=== PATIENT | female | born 1955 | race Caucasian/White ===

== ENCOUNTER 2017-10-03 13:15 | Day surgery (SDC) | payer OTHER ==
[~2017-10-03] VITALS: Ht 160 cm; Wt 93.2 kg
[~2017-10-03 13:15] MED LIST: ANAPROX DS PO; ASPIRIN 81M81 MG/TA2 PO; FISH OIL500 MG PO; PHENERGAN 25 TA25 MG PO
[2017-10-03 14:07] VITALS: BP 137/83; PULSE 64; TEMP 98.2
[2017-10-03] MEDS ORDERED: VITAMIN D31000 I1 PO (14:14)
[2017-10-03] MEDS ORDERED: VITAMIN A10k PO (14:14)
[2017-10-03 15:57] VITALS: BP 117/64; PULSE 59; TEMP 97.8
[2017-10-03 16:15] VITALS: BP 120/76; PULSE 53
[2017-10-03 16:30] VITALS: BP 119/69; PULSE 53
== END 2017-10-03 17:05 | disposition home or self-care (01) ==
LOC: SDCO 13:15
DX: K44.9 Diaphragmatic hernia without obstruction or gangrene (principal); K29.30 Chronic superficial gastritis without bleeding; Z80.0 Family history of malignant neoplasm of digestive organs; Z79.82 Long term (current) use of aspirin; Z88.0 Allergy status to penicillin
CPT/HCPCS: OP; J2250; J3010; J7030

== ENCOUNTER 2019-01-25 10:02 | Day surgery (SDC) | payer MEDICARE, OTHER ==
[~2019-01-25] VITALS: Ht 160.1 cm; Wt 92.0 kg
[2019-01-25] VITALS (9 sets, daily range): BP systolic 106–160; BP diastolic 58–89; PULSE 50–65; TEMP 97.7
[~2019-01-25 10:02] MED LIST changes: +VITAMIN A10k PO; +VITAMIN D31000 I1 PO
[2019-01-25 10:47] LABS: HEMOGLOBIN 14.6 g/dl (12.5-16.0); MEAN CELL VOLUME 81 fl (80.0-100.0); MEAN CORPUSCULAR HEMOGLOBIN 26 pg (27.0-31.0); MEAN CORPUSCULAR HGB CONC 32 g/dl (33.0-37.0); MEAN PLATELET VOLUME 10.5 fl (7.4-10.4); PLATELET COUNT 217 K/mm3 (130-400); RED BLOOD COUNT 5.53 M/mm3 (4.10-5.30); REDCELL DISTRIBUTION WIDTH-CV 14.1 % (11.5-14.5)
[2019-01-25 10:53] LABS: PROTHROMBIN TIME 11.9 SECONDS (9.7-12.8)
[2019-01-25 10:56] LABS: CALCIUM 9.5 mg/dL (8.4-10.2); CREATININE, serum 0.85 (0.52-1.25); POTASSIUM 4.1 mmol/L (3.4-5.0)
[2019-01-25] MEDS ORDERED: NEURONTIN100 MG/CAP PO (11:06)
[2019-01-25] MEDS ORDERED: CLEOCIN HCL300 MG PO (11:07)
--- NOTE | 2019-01-25 13:26 | NUR ---
ALL MEDICATIONS GIVEN WITH VORB BY MD. SEE MERGE FOR ALL MEDICATION ADMIN TIMES. SEE MERGE FOR ALL RASS ASSESSMENTS DURING AND POST PROCEDURE. POSITIVE CLAUDIO'S TEST IN THE RIGHT WRIST.
--- NOTE | 2019-01-25 14:30 | NUR ---
Pt returned to EU 9 per bed s/p heart cath. Pt c/o back pain, states this is usual when she has been laying on her back. Pt repositioned and extra pillow given to pt. Pt states she is more comfortable.
--- NOTE | 2019-01-25 16:15 | NUR ---
Radial band removed. R wrist site remains soft, C/D/I. Site covered with bandaid and gauze and wrapped with coban. Pt nato well.
--- NOTE | 2019-01-25 16:20 | NUR ---
Pt had severe back spasms with ambulation. Pt layed on R side and back spasms resolved.
--- NOTE | 2019-01-25 16:33 | NUR ---
Pt has ambulated and nato PO intake s n/v. PIV removed with catheter intact.
--- NOTE | 2019-01-25 17:00 | NUR ---
Pt discharged per w/c by nurse with daughter.
== END 2019-01-25 17:11 | disposition home or self-care (01) ==
LOC: COL.CAR 10:02
PROVIDERS: Internal Medicine Interventional Cardiology
DX: R07.9 Chest pain, unspecified (principal); I83.893 Varicose veins of bilateral lower extremities with other complications; R60.0 Localized edema; R06.02 Shortness of breath; R94.39 Abnormal result of other cardiovascular function study; R42 Dizziness and giddiness; Z82.3 Family history of stroke; Z80.9 Family history of malignant neoplasm, unspecified; Z82.49 Family history of ischemic heart disease and other diseases of the circulatory system; Z88.0 Allergy status to penicillin
CPT/HCPCS: J1644; J2250; J3010; Q9967

== ENCOUNTER → 2019-11-12 | Outpatient (CLI) | payer MEDICARE, OTHER ==
[~2019-11-12] MED LIST changes: +CLEOCIN HCL300 MG PO; +NEURONTIN100 MG/CAP PO
== END ==
LOC: COL.RAD 07:11
DX: R10.12 Left upper quadrant pain (principal)

== ENCOUNTER → 2020-03-13 | Outpatient (CLI) | payer MEDICARE, OTHER | LOC: COL.RAD 07:30 | DX: E04.2 Nontoxic multinodular goiter (principal); M79.9 Soft tissue disorder, unspecified ==

== ENCOUNTER 2020-09-12 19:36 | Emergency (ER) | payer MEDICARE, OTHER ==
[~2020-09-12] VITALS: Ht 160 cm; Wt 90.9 kg
[2020-09-12 19:41] VITALS: TEMP 98.5
[2020-09-12] MEDS ORDERED: ELIQUIS 5MG PO (19:56)
[2020-09-12 19:58] LABS: BASO # 0.1 (0.0-0.2); BASO % 0.7 % (0.0-2.0); EOS # 0.3 (0.0-0.7); EOS % 3.3 % (0-4.0); GRAN # 4.9 (1.4-6.5); GRAN % 56.6 % (42.2-75.2); HEMOGLOBIN 14.5 g/dl (12.5-16.0); LYMPH # 2.8 (1.2-3.4); LYMPH % 32.3 % (20.0-51.0); MEAN CELL VOLUME 83 fl (80.0-100.0); MEAN CORPUSCULAR HEMOGLOBIN 27 pg (27.0-31.0); MEAN CORPUSCULAR HGB CONC 32 g/dl (33.0-37.0); MEAN PLATELET VOLUME 10.3 fl (7.4-10.4); MONO # 0.6 (0.1-0.6); MONO % 6.9 % (1.7-9.3); PLATELET COUNT 241 K/mm3 (130-400); RED BLOOD COUNT 5.44 M/mm3 (4.10-5.30); REDCELL DISTRIBUTION WIDTH-CV 13.8 % (11.5-14.5)
[2020-09-12 20:08] LABS: ALANINE AMINOTRANSFERASE 24 U/L (4-34); ALBUMIN 4.6 gm/dL (3.5-5.0); ALKALINE PHOSPHATASE 100 U/L (50-136); ANION GAP 10 mmol/L (7-16); AST,SGOT 32 U/L (15-37); BILIRUBIN,TOTAL 0.7 mg/dL (0.0-1.0); BLOOD UREA NITROGEN 11 mg/dL (7-17); CALCIUM 9.6 mg/dL (8.4-10.2); CARBON DIOXIDE 27 mmol/L (22-30); CHLORIDE 104 mmol/L (98-107); CREATININE, serum 0.92 (0.52-1.25); GLUCOSE 106 mg/dL (74-106); LIPASE 108 U/L (23-300); POTASSIUM 3.7 mmol/L (3.4-5.0); SODIUM 141 mmol/L (137-145)
[2020-09-12 20:37] LABS: TROPONIN-I < 0.012 ng/mL (0.000-0.035)
[2020-09-12] MEDS ORDERED: CARAFATE 1GM1 G PO (23:29)
[2020-09-12 23:47] VITALS: BP 133/79; PULSE 62
== END 2020-09-12 23:47 | disposition home or self-care (01) ==
LOC: COL.ER 19:36
PROVIDERS: Emergency Medicine
DX: R07.89 Other chest pain (principal); Z79.01 Long term (current) use of anticoagulants; Z86.718 Personal history of other venous thrombosis and embolism; Z88.0 Allergy status to penicillin
CPT/HCPCS: Q9967

== ENCOUNTER → 2021-01-04 | Outpatient (CLI) | payer MEDICARE, OTHER ==
[~2021-01-04] MED LIST changes: +CARAFATE 1GM1 G PO; +ELIQUIS 5MG PO
== END ==
LOC: MC.RAD 12:00
DX: Z12.31 Encounter for screening mammogram for malignant neoplasm of breast (principal)

== ENCOUNTER 2021-04-03 18:19 | Emergency (ER) | payer MEDICARE, OTHER ==
[~2021-04-03] VITALS: Ht 160 cm; Wt 90.9 kg
[2021-04-03 18:20] VITALS: TEMP 98.8
[2021-04-03 22:05] VITALS: BP 129/80; PULSE 61
== END 2021-04-03 22:10 | disposition home or self-care (01) ==
LOC: COL.ER 18:19
DX: M25.561 Pain in right knee (principal); M25.551 Pain in right hip; M19.91 Primary osteoarthritis, unspecified site; Z86.718 Personal history of other venous thrombosis and embolism; Z79.01 Long term (current) use of anticoagulants
CPT/HCPCS: J2270; J3360; L1846

== ENCOUNTER → 2021-09-14 | Outpatient (CLI) | payer MEDICARE, OTHER | LOC: COL.RAD 10:13 | DX: M51.16 Intervertebral disc disorders with radiculopathy, lumbar region (principal); M47.26 Other spondylosis with radiculopathy, lumbar region; M47.817 Spondylosis without myelopathy or radiculopathy, lumbosacral region ==

== ENCOUNTER → 2022-05-20 | Outpatient (CLI) | payer MEDICARE, OTHER | LOC: COL.RAD 14:09 | DX: Z12.11 Encounter for screening for malignant neoplasm of colon (principal) ==